=== PATIENT | female | born 1950 | race Caucasian/White ===

== ENCOUNTER → 2025-03-15 | Outpatient (CLI) | payer MEDICARE, BC, SELFPAY ==
[2025-03-15 17:44] LABS: Albumin, Serum 4.3 gm/dL (3.4-4.8); Anion Gap 11 (7-16); BUN/Creatinine Ratio 27 Ratio (12-20); Blood Urea Nitrogen 27 mg/dL (9-23); Carbon Dioxide 25.2 mMol/L (20.0-31.0); Chloride 103 mMol/L (98-107); Glucose 121 mg/dL (74-106); Osmolality,Calculated 283 (275-295); Phosphorous 3.8 mg/dL (2.4-5.1); Potassium 3.6 mMol/L (3.4-5.1); Sodium 139 mMol/L (136-145); eGFR 60 See Note
== END | disposition home or self-care (01) ==
PROVIDERS: PCP Internal Medicine; Referring Provider Internal Medicine Cardiovascular Disease; Visit Provider Internal Medicine Cardiovascular Disease
DX: I50.33 Acute on chronic diastolic (congestive) heart failure (principal)
CPT/HCPCS: 36415; 80069

== ENCOUNTER 2025-05-02 06:36 | Day surgery (SDC) | payer MEDICARE, BC, SELFPAY ==
--- NOTE | 2025-05-01 07:00 | EKG_ITS ---
[facility] Test Date: 2025-05-01 Pat Name: PUMA LANDON Department: Room: - Gender: Female Instructional Paraprofessional: RTSJC : 1950 Requested By: Sravani Berman Order Number: [id number] Reading MD: Sravani Berman Measurements Intervals [place] Rate: 60 P: 44 PA: 213 QRS: -51 QRSD: 100 T: 95 QT: 434 QTc: 434 Interpretive Statements SINUS RHYTHM WITH FIRST DEGREE AV BLOCK INCOMPLETE RIGHT BUNDLE BRANCH BLOCK [90+ ms QRS DURATION, TERMINAL R IN V1/V2, 40+ ms S IN I/aVL/V4/V5/V6] LEFT ANTERIOR FASCICULAR BLOCK [QRS AXIS <= -45, QR IN I, RS IN II] ANTEROSEPTAL MYOCARDIAL INFARCTION , OF INDETERMINATE AGE [40+ ms Q WAVE IN V1-V4] No previous ECG available for comparison /[id number]
[2025-05-01 11:17] VITALS: BMI 25.7
[2025-05-01 17:47] LABS: Basophils # (Auto) 0.1 Thou/mm3 (0.0-0.2); Basophils % (Auto) 1 % (0-2.5); Eosinophils # (Auto) 0.3 Thou/mm3 (0.0-0.5); Eosinophils % (Auto) 4 % (0-10); Hematocrit 36.4 % (36.0-46.0); Hemoglobin 11.8 g/dL (12.0-16.0); Immature Granulocytes Auto 0.02 Thou/mm3 (0.00-0.00); Lymphocytes # (Auto) 0.8 Thou/mm3 (1.0-4.8); Lymphocytes % (Auto) 14 % (10-50); Mean Corpuscular HGB Conc 32.4 g/dl (31.0-37.0); Mean Corpuscular Hemoglobin 32.9 pg (25.0-35.0); Mean Corpuscular Volume 101 fL (80-100); Monocytes # (Auto) 0.9 Thou/mm3 (0.0-0.8); Monocytes % (Auto) 14 % (0-12); Neutrophils # (Auto) 4.1 Thou/mm3 (1.8-7.7); Neutrophils % (Auto) 67 % (37-80); Nucleated Red Blood Cell # 0.00 Thou/mm3 (0.00-0.00); Nucleated Red Blood Cell % 0 /100 WBC (0); Platelet Count 270 Thou/mm3 (140-440); RDW Standard Deviation 53.1 fL (36.4-46.3); Red Blood Count 3.59 Miln/mm3 (4.00-5.20); White Blood Count 6.1 Thou/mm3 (3.6-11.0)
[2025-05-01 17:54] LABS: Partial Thromboplastin Time 30.1 Seconds (22.0-36.0)
[2025-05-01 18:32] LABS: Anion Gap 10 (7-16); BUN/Creatinine Ratio 23 Ratio (12-20); Blood Urea Nitrogen 23 mg/dL (9-23); Calcium 9.6 mg/dL (8.3-10.6); Carbon Dioxide 23.6 mMol/L (20.0-31.0); Chloride 104 mMol/L (98-107); Creatinine (Component) 1.0 mg/dL (0.6-1.3); Estimated Creatinine Clearance 48.2 mL/min (>60); Glucose 90 mg/dL (74-106); Osmolality,Calculated 279 (275-295); Potassium 4.2 mMol/L (3.4-5.1); Sodium 138 mMol/L (136-145); eGFR 60 See Note
[2025-05-02] VITALS (11 sets, daily range): BP systolic 119–151; BP diastolic 64–86; PULSE 54–57; RESP 16–24; TEMP 36.6–36.9; O2SAT 91–96
[2025-05-02 07:47] LABS: INR 1.0 (0.9-1.3); Prothrombin Time 11.3 Seconds (9.0-12.2)
[2025-05-02] MEDS: HYDROcodone/APAP 5/325 TABLET 1 TAB PO (09:31)
--- NOTE | 2025-05-02 13:52 | ESOP_ITS ---
RE: PUMA LANDON : 1950 DATE OF OPERATION: 05/02/2025 PROCEDURES PERFORMED: 1. Diagnostic right and left cardiac catheterization, selective coronary angiogram, and left ventricular angiogram, CPT 45618. 2. Conscious sedation for 30-minute duration. 3. Ultrasound-guided access to the right radial artery and right femoral vein. DIAGNOSES: Pulmonary hypertension, shortness of breath, history of interstitial pneumonia, and interstitial lung disease. HISTORY AND INDICATIONS: The patient is a 74-year-old female with a past medical history of connective tissue disease and interstitial lung disease, who has now progressive shortness of breath. A cardiac echo showed a PA pressure of 70 mmHg or higher. Because of severe shortness of breath, interstitial lung disease with pulmonary artery hypertension, recommended to have right and left heart catheterization for cardiac cause of shortness of breath and assessment of pulmonary artery hypertension and underlying coronary artery disease. PROCEDURE IN DETAIL: The patient was brought to the cardiac catheterization laboratory. She was given 2 mg of Versed and 50 mcg of fentanyl for sedation. A right radial approach was taken for left heart catheterization. Ultrasound guidance was used. Cannulation of the right radial artery was performed successfully. A 6-[place] Glidesheath was introduced. Right femoral vein was cannulated by the Seldinger technique. A 7-[place] sheath was introduced. Right heart catheterization was performed with a [place] catheter. Right heart pressures were measured. Cardiac output was obtained with the thermodilution technique. Left heart catheterization was performed by TIG-4 diagnostic catheter. Left ventricular angiogram was performed. Subsequently, pullback pressure measured. Selective right and left coronary angiogram was performed by selective angiogram using a TIG-4 diagnostic catheter. The patient tolerated the procedure well with no complications. TR band was applied. Hemostasis was secured subsequently. Radial cocktail was given after cannulation of the right radial artery. HEMODYNAMICS: As follows: Right atrial pressure was found to be 5 mmHg, right ventricular pressure 70/2 mmHg, EDP of 11. Pulmonary artery pressure is 71/20. Mean pressure of 35. Pulmonary artery wedge pressure is 10 mmHg. Left ventricular pressure is 121/3, EDP of 14. Aortic pressure is 122/56. No gradient across the aortic valve. Left ventricular angiogram showed normal left ventricular wall motion. Ejection fraction of 70%. Coronary angiogram showed following findings: Right coronary artery large and dominant, appears normal. Posterior descending artery and posterolateral branches are perfectly normal. Left coronary system: The left main coronary artery is normal. Left anterior descending artery is normal, gives off diagonal and septal branches, all of them normal. Circumflex artery is normal. SUMMARY OF FINDINGS AND SUGGESTIONS: 1. Severe group 1 primary pulmonary arterial hypertension, PA pressure 70/20, mean 35 mmHg. 2. Normal wedge pressures, left heart pressures. 3. Normal left ventricular function, EF 70%. 4. Nonobstructive normal coronary arteries. RECOMMENDATIONS: Continue present medical management. We will treat the patient for group 1 pulmonary arterial hypertension with a combination of ambrisentan 5 mg daily and Adempas (Riociguat) 0.5 mg t.i.d. to start with and titrate up to 2 mg dose. This will be started as an outpatient. cc: Neeraj Curtis DT: 12:53:22 TT: 13:43:00 Ref: [id number] - TID: [id number]
== END 2025-05-02 11:00 | disposition home or self-care (01) ==
PROVIDERS: PCP Internal Medicine; Referring Provider Internal Medicine Cardiovascular Disease; Visit Provider Internal Medicine Cardiovascular Disease
PROC: (CPT 93460; principal; 2025-05-02 07:30)
DX: I27.20 Pulmonary hypertension, unspecified (principal); J84.9 Interstitial pulmonary disease, unspecified; Z01.810 Encounter for preprocedural cardiovascular examination; R06.02 Shortness of breath
CPT/HCPCS: 93460; 36415; 80048; 85025; 85610; 85730; 93005; 99152; 99153; A4649; C1769; C1887; C1894; J0168; J0461; J1643; J2250; J2310; J2371; J3010; J3490; Q9967; A9270